=== PATIENT | female | born 1980 | race Hispanic/Latino ===

== ENCOUNTER 2017-08-08 13:26 | Inpatient (IN) | payer OTHER ==
[~2017-08-08] VITALS: Ht 160 cm; Wt 84.8 kg
[2017-08-08] VITALS (19 sets, daily range): BP systolic 105–137; BP diastolic 57–82
--- NOTE | 2017-08-08 13:45 | NUR ---
PT ARRIVED ON OB UNIT IN WHEELCHAIR TRANSPORTED FROM ER REGISTRATION, ACCOMPANIED BY . NO SX OF DISTRESS OR CONTRACTIONS. SWEDISH SPEAKING. STATES SHE HAS GEST DIABETES, NO MEDS, ONLY DIET, NO RECENT SUGAR LOG. NO BLEEDING, NO RUPTURE OF MEMBRANES. PT STATES ONLY A FEW CONTRACTIONS SINCE 0800. INTERVIEW AND CONSENTS SIGNED WITH BRI MCKEON. PT STATES THAT SHE HAS NO QUESTIONS OR CONCERNS AT THIS TIME AND SHE IS SURE HER HAI IS 08/03 (18 WK U/S REPORT AGREES). DR. MAHMOOD ON THE UNIT AND GIVEN REPORT
[2017-08-08 13:46] LABS: URINE BILIRUBIN - DIPSTICK NEGATIVE (NEGATIVE); URINE BLOOD DIPSTICK MODERATE (NEGATIVE); URINE COLOR YELLOW; URINE GLUCOSE - DIPSTICK NEGATIVE (NEGATIVE); URINE KETONE NEGATIVE (NEGATIVE); URINE NITRITE - DIPSTICK NEGATIVE (Negative); URINE PH 6.5 (4.5-8.0); URINE PROTEIN - DIPSTICK NEGATIVE (NEG-TRACE); URINE SPECIFIC GRAVITY <=1.005; URINE UROBILINOGEN - DIPSTICK 0.2 E.U./dL (0.2)
[2017-08-08 13:51] LABS: URINE CLARITY TURBID; URINE LEUK ESTERASE SMALL (NEGATIVE)
[2017-08-08 14:00] LABS: URINE BACTERIA RARE hpf; URINE RBC 25-50 RBC/hpf (0-5); URINE SQUAMOUS EPITHELIAL CELL FEW EPI/hpf (0-FEW)
[2017-08-08 14:01] LABS: BARBITURATES NEGATIVE (NEGATIVE); COCAINE NEGATIVE (NEGATIVE); METHADONE NEGATIVE (NEGATIVE); OXCYCODONE NEGATIVE (NEGATIVE); TETRAHYDROCANNABIONOL NEGATIVE (NEGATIVE); TRICYLIC ANTIDEPRESSANTS NEGATIVE (NEGATIVE)
[2017-08-08 14:51] LABS: HEMATOCRIT 37.4 % (37.0-47.0); MEAN CELL VOLUME 90.8 fL CALC (80.0-100.0); MEAN CORPUSCULAR HGB 31.6 pG CALC (26.0-32.0); MEAN CORPUSCULAR HGB CONC 34.8 g/L CALC (32.0-36.0); NEUT# 8.81 thou/uL (2.00-7.15); RED BLOOD COUNT 4.12 mill/uL (4.20-5.60); RED CELL DISTRI WIDTH 13.1 % (11.5-15.5)
--- NOTE | 2017-08-08 15:00 | NUR ---
REPORT TO Raciel AUSTIN RN, ASSUMING CARE.
[2017-08-08 15:03] LABS: ALBUMIN 3.3 g/dL (3.2-5.0); ALKALINE PHOSPHATASE 151 u/l (38-126); ANION GAP 13 (6-22 (CALC)); BILIRUBIN, TOTAL 0.5 mg/dL (0.0-1.4); BUN 6 mg/dL (7-17); BUN/CREATININE RATIO 14 (12-20 (CALC)); CALCIUM 9.5 mg/dL (8.4-10.2); CARBON DIOXIDE 21 mmol/l (22-30); CHLORIDE 108 mmol/l (95-108); CREATININE 0.5 mg/dL (0.5-1.0); GFR > 60 ML/MIN (>=60 (CALC)); GFR FOR AFR.AMER. > 60 ML/MIN (>=60 (CALC)); GLUCOSE 91 mg/dL (65-105); SGOT/AST 51 u/l (14-36); SGPT/ALT 75 u/l (9-52); SODIUM 137 mmol/l (137-146); TOTAL PROTEIN 6.2 g/dL (6.3-8.2)
--- NOTE | 2017-08-08 15:07 | NUR ---
Received report from Zak Leavitt RN on patient.
--- NOTE | 2017-08-08 15:13 | NUR ---
Patient order for PCN G 5 million given as ordered for GBS positive.
[2017-08-08] MEDS ORDERED: PRENATA3 PO (15:40)
--- NOTE | 2017-08-08 16:20 | NUR ---
IV fluids of Lactated Ringers infusing well with bolus given and regular at 125cc/hr.
--- NOTE | 2017-08-08 16:41 | NUR ---
Patient resting in room in no distress at present moment. heart rate of 125, moderate variability noted, no decels noted.
--- NOTE | 2017-08-08 17:02 | NUR ---
Patient resting in no distress at present moment. Voices no concern. Patient breathing in between contractions well.
--- NOTE | 2017-08-08 17:30 | NUR ---
Moderate variability, some variables, no decels noted. Contractions palpated mild to moderate.
--- NOTE | 2017-08-08 17:30 | NUR ---
Patient quentin every 2 to 3 minutes. Patient rates pain level of 6 on scale of 1 to 10.
--- NOTE | 2017-08-08 18:30 | NUR ---
Patient resting in bed breathing in between contractions. Will continue to monitor. heart rate of 135, moderate variability, no decels noted.
--- NOTE | 2017-08-08 18:45 | NUR ---
Report given to oncoming shift on patient.
--- NOTE | 2017-08-08 18:50 | NUR ---
REPORT RECEIVED FROM VANESSA JOHNSTON. PT. LYING IN BED WITH SPOUSE AT BEDSIDE. IRREGULAR UTERINE CONTRACTIONS NOTED. PT. TOLERATING PAIN AT THIS TIME. IV LR INFUSING AT 125ML/HR.
--- NOTE | 2017-08-08 22:50 | NUR ---
PT. CRYING WITH CONTRACTIONS. DESIRES PAIN MED. VE CVX /-1 VTX. MEDICATED WITH NUBAIN 10MG IV.
--- NOTE | 2017-08-08 23:44 | NUR ---
IV NUBAIN GIVEN FOR PAIN IS EFFECTIVE. PT. SLEEPING BETWEEN CONTRACTIONS. MINIMAL FHR VARIABILITY NOTED SINCE NUBAIN WAS GIVEN. NO DECELERATIONS NOTED.
--- NOTE | 2017-08-08 23:50 | NUR ---
PT. C/O OF VAGINAL PRESSURE. EXAMINED. CVX 8CM DILATED. DR. MAHMOOD INFORMED BY PHONE AND PT MOVED TO DELIVERY ROOM.
[2017-08-09] VITALS (11 sets, daily range): BP systolic 96–151; BP diastolic 56–74
--- NOTE | 2017-08-09 00:40 | NUR ---
DR MAHMOOD AT PT'S BEDSIDE. PT. PUSHING EFFECTIVELY WITH TELEPHONE INTERPRITOR.
--- NOTE | 2017-08-09 01:20 | NUR ---
OF A LIVING MALE. NO COMPLICATIONS.
--- NOTE | 2017-08-09 06:45 | NUR ---
Report received from prior shift on patient.
--- NOTE | 2017-08-09 07:43 | NUR ---
Pain level of 4 on scale of 1 to 10. Medicated with motrin 600mg by mouth for pain.
--- NOTE | 2017-08-09 08:55 | NUR ---
Pain level of 0 on scale of 1 to 10.
--- NOTE | 2017-08-09 10:03 | NUR ---
Patient resting in room in no distress at present moment.
--- NOTE | 2017-08-09 11:13 | NUR ---
Patient up to shower and linens changed also.
--- NOTE | 2017-08-09 14:33 | NUR ---
Patient visiting with other children and significant other in room.
--- NOTE | 2017-08-09 16:45 | NUR ---
Patient resting comfortably in no distress at present time.
--- NOTE | 2017-08-09 18:27 | NUR ---
Patient in no distress at present moment.
--- NOTE | 2017-08-09 18:56 | NUR ---
Report given to oncoming shift on patient.
--- NOTE | 2017-08-09 19:00 | NUR ---
REPORT RECEIVED FROM Raciel AUSTIN RN. PT LAYING IN BED, SPOUSE AT BEDSIDE, INFANT ASLEEP IN OPEN CRIB. CALL LIGHT IN REACH, BED IN LOW POSITION. DENIES ANY NEEDS AT THIS TIME. WILL CONTINUE TO MONITOR.
--- NOTE | 2017-08-10 | NUR ---
IN TO CHECK ON PATIENT, LAYING ON SIDE, RESP EVEN/UNLABORED. LIGHTS/TV OFF. S/O AT BEDSIDE. BED LOW POSITION, CALL LIGHT IN REACH.
[2017-08-10 04:47] VITALS: BP 126/85
--- NOTE | 2017-08-10 04:47 | NUR ---
PT STANDING AT BEDSIDE HAVING JUST WALKED TO BATHROOM. DENIES ANY PAIN, DIZZINESS OR WEAKNESS. VSS CHARTED. IN NURSERY, S/O ASLEEP AT BEDSIDE.
[2017-08-10 06:23] LABS: HEMATOCRIT 36.3 % (37.0-47.0); HEMOGLOBIN 12.3 g/dl (12.0-16.0); MEAN CELL VOLUME 92.8 fL CALC (80.0-100.0); MEAN CORPUSCULAR HGB 31.5 pG CALC (26.0-32.0); MEAN CORPUSCULAR HGB CONC 33.9 g/L CALC (32.0-36.0); NEUT# 8.4 thou/uL (2.00-7.15); RED BLOOD COUNT 3.91 mill/uL (4.20-5.60); RED CELL DISTRI WIDTH 13.2 % (11.5-15.5)
--- NOTE | 2017-08-10 06:29 | NUR ---
PT RESTING COMFORTABLY. DENIES ANY NEEDS/PAIN. REPORT PREPARED FOR ONCOMING SHIFT.
--- NOTE | 2017-08-10 07:00 | NUR ---
REPORT RECEIVED, TO PT ROOM WITH PREVIOUS NURSE.
--- NOTE | 2017-08-10 09:31 | NUR ---
PT OOB TO VOID, RANDI CARE DONE, PT OOB IN ROOM, NOW SITS IN CHAIR WATCHING NB CARE VIDEO.
[2017-08-10] MEDS ORDERED: IBUPROFEN600 MG PO (10:00)
--- NOTE | 2017-08-10 11:25 | NUR ---
[facility] TRANSLATOR IN TO SEE PT. PT WATCHED BR FEEDING, NB CARE VIDEO. PT SIT IN CHAIR BR FEEDING.
--- NOTE | 2017-08-10 12:55 | NUR ---
DISCHARGE PLAN REVIEWED, PT ACKNOWLEGDGES UNDERSTANDING. S/O PRESENT.
--- NOTE | 2017-08-10 14:00 | NUR ---
PT AMBULATES IN ROOM, CARING FOR INFANT W/O PROBLEM.
--- NOTE | 2017-08-10 15:00 | NUR ---
PREPARES FOR DISCHARGE.
--- NOTE | 2017-08-10 15:30 | NUR ---
Discharge instructions given and reviewed. Pt. verbalizes understanding. Discharged in good condition via Wheelchair to Home with in carseat. accompanied by spouse, escorted by this nurse.
== END 2017-08-10 15:30 | disposition home or self-care (01) | DRG 775 ==
LOC: OBOP 13:26 → EDSTATUS 13:27 → OB 13:41 → OBOP 13:41 → OB 14:05
PROVIDERS: ADMIT Obstetrics & Gynecology; ATTEND Obstetrics & Gynecology
PROC: 10D07Z6 Extraction of Products of Conception, Vacuum, Via Natural or Artificial Opening (ICD-10-PCS; principal; 2017-08-09)
PROC: 10907ZC Drainage of Amniotic Fluid, Therapeutic from Products of Conception, Via Natural or Artificial Opening (ICD-10-PCS; 2017-08-09)
DX: O48.0 Post-term pregnancy (principal); O99.824 Streptococcus B carrier state complicating childbirth; O77.0 Labor and delivery complicated by meconium in amniotic fluid; O75.81 Maternal exhaustion complicating labor and delivery; Z3A.41 41 weeks gestation of pregnancy; Z37.0 Single live birth
CPT/HCPCS: J2540